=== PATIENT | female | born 1945 | race Caucasian/White ===

== ENCOUNTER 2017-11-28 09:57 | Observation (INO) | payer BC, MEDICARE ==
[2017-11-28] MEDS ORDERED: NS 0.9% 1000 ML* 1,000 ML IV ONE (10:07)
[2017-11-28 10:28] LABS: ABS Basophils 0.1 10^3/ul (0-0.2); ABS Eosinophils 0.1 10^3/ul (0-0.6); ABS Lymphocytes 1.5 10^3/ul (1.0-4.8); ABS Monocytes 0.4 10^3/ul (0-0.8); ABS Neutrophils 3.2 10^3/ul (1.5-7.7); ABS Nucleated RBC 0 10^3/ul; Eosinophil % 1.8 % (0-6); Hematocrit 43 % (35-47); Hemoglobin 14.5 g/dl (12.0-16.0); Mean Corpuscular HGB Conc 34 g/dl (31-36); Mean Corpuscular Hemoglobin 31 pg (27-31); Mean Corpuscular Volume 91 fL (80-97); Mean Platelet Volume 9 um3 (7.4-10.4); Nucleated Red Blood Cells % 0; Platelet Count 156 10^3/ul (150-450); Red Blood Count 4.71 10^6/ul (4.0-5.4); Red Cell Distribution Width 13 % (10.5-15); White Blood Count 5.3 10^3/ul (3.5-10.8)
--- NOTE | 2017-11-28 10:29 | RAD ---
INDICATION: Change in neurologic status COMPARISON: None TECHNIQUE: Noncontrast axial source images were acquired from the skull base to the vertex. FINDINGS: Ventricles/sulci: The ventricles and cisterns are normal in size and configuration for age. Brain parenchyma: There is minor periventricular and subcortical white matter change compatible with chronic ischemia. Intracranial hemorrhage:None. Extra-axial spaces: There are no abnormal extra axial fluid collections or evidence of extra-axial mass. Calvarium: There is no calvarial fracture or other calvarial abnormality. Scalp: There is no evidence of scalp or extracalvarial soft tissue abnormality. Paranasal sinuses/mastoid: The paranasal sinuses and mastoid air cells are clear. Other: None. IMPRESSION: NO ACUTE INTRACRANIAL FINDINGS. Findings called to ED at 1024 hours
[2017-11-28] MEDS ORDERED: Aspirin TAB* 325 MG PO ONE (10:40)
[2017-11-28 10:45] LABS: INR 0.84 (0.77-1.02)
[2017-11-28 10:46] LABS: EGFR Non-African American 47.1 (>60)
--- NOTE | 2017-11-28 11:15 | RAD ---
HISTORY: Neurological changes COMPARISONS: January 06, 2014 VIEWS: 1: frontal portable view of the chest at 10:45 AM FINDINGS: LINES AND TUBES: None. CARDIOMEDIASTINAL SILHOUETTE: The aorta is tortuous. The cardiomediastinal silhouette is otherwise normal for portable technique. PLEURA: The costophrenic angles are sharp. No pleural abnormalities are noted. LUNG PARENCHYMA: The lungs are clear. ABDOMEN: The upper abdomen is clear. There is no subphrenic gas. BONES AND SOFT TISSUES: No bone or soft tissue abnormalities are noted. IMPRESSION: NO ACTIVE CARDIOPULMONARY DISEASE.
[2017-11-28 11:43] LABS: Urine Appearance Clear; Urine Blood Negative (Negative); Urine Color Straw; Urine Ketones Negative (Negative); Urine Protein Negative (Negative); Urine Specific Gravity 1.005 (1.010-1.030); Urine Urobilinogen Negative (Negative)
[2017-11-28] MEDS ORDERED: Acetaminophen TAB* 325 MG PO PRN (12:31)
[2017-11-28] MEDS ORDERED: Ondansetron INJ* 2 MG/ML VIAL IV PRN (12:31)
--- NOTE | 2017-11-28 13:32 | ED ---
Scott Dutton Jennifer, scribed for Delgado Hicks MD on 11/28/17 at 1016 . Neurological HPI - HPI Summary HPI Summary: The patient is a 72 year old female who presents with right-sided facial droop since around 09:00. She reports her face looked normal when she was brushing her teeth at 07:00. Pt explains she has had tight sided tingling to her face around the mouth for the last week. She additionally complains she has had to strain more to enunciate for the past couple of days. Pt denies eyelid drooping , as well as Hx stroke. - History of Current Complaint Chief Complaint: EDNeurologicalDeficit Stated Complaint: FACIAL NUMBNESS Time Seen by Provider: 11/28/17 10:03 Hx Obtained From: Patient Onset/Duration: Gradual Onset, Started hours ago - Facial drooping began this morning., Started weeks ago - RIght-sided face tingling began one week ago, Still Present Timing: Constant Onset Severity: Mild Current Severity: Mild Pain Intensity: 0 Pain Scale Used: 0-10 Numeric Character: Other: - Facial droop, facial tingling, straining to enunciate words. NEGATIVE: eyelid drooping Aggravating: Nothing Alleviating: Nothing Associated Signs and Symptoms: Positive: Negative - Eyelid drooping, Impaired Speech - Straining to enunciate words, Numbness - Tingling to right side of face near mouth - Allergy/Home Medications Allergies/Adverse Reactions: Allergies Allergy/AdvReac Type Severity Reaction Status Date / Time No Known Allergies Allergy Verified 11/28/17 11:41 Home Medications: Home Medications Calcium Carbonate TAB* 1,250 mg PO DAILY 11/28/17 [History Confirmed 11/28/17] FLUoxetine CAP* [PROzac CAP*] 40 mg PO DAILY 11/28/17 [History Confirmed ] Levothyroxine TAB* [Synthroid TAB*] 100 mcg PO DAILY 11/28/17 [History Confirmed 11/28/17] Metoprolol Succinate XL TAB* [Toprol XL TAB*] 25 mg PO DAILY 11/28/17 [History Confirmed 11/28/17] Multivitamins/Minerals TAB* [Theragran/minerals TAB*] 1 tab PO DAILY 11/28/17 [ History Confirmed 11/28/17] [place]-3 Fatty Acids (Nf) [Fish Oil (NF)] 1,000 mg PO DAILY 11/28/17 [History Confirmed 11/28/17] PMH/Surg Hx/FS Hx/Imm Hx Endocrine/Hematology History: Reports: Hx Thyroid Disease Denies: Hx Anticoagulant Therapy, Hx Diabetes Cardiovascular History: Reports: Hx Hypertension, Other Cardiovascular Problems/ Disorders - Hx HTN Denies: Hx Hypercholesterolemia, Hx Syncope Respiratory History: Denies: Hx Seasonal Allergies, Hx Sleep Apnea GI History: Denies: Hx Gall Bladder Disease, Hx Gastroesophageal Reflux Disease, Hx Irritable Bowel, Hx Ulcer History: Denies: Hx Renal Disease Musculoskeletal History: Reports: Hx Arthritis, Other Musculoskeletal History - L and R total knee replacements Denies: Hx Gout Neurological History: Reports: Hx Migraine Denies: Hx CVA, Hx Seizures, Hx Spinal Cord Injury Psychiatric History: Reports: Hx Depression - prozac Denies: Hx Anxiety, Hx Eating Disorder, Hx Panic Disorder, Hx Post Traumatic Stress Disorder, Hx Inpatient Treatment, Hx Suicide Attempt, Hx Substance Abuse - Cancer History Cancer Type, 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 Hx Radiation Therapy: Yes - Surgical History Surgery Procedure, Year, and Place: lumpectomy left, total L knee replacement 06/10/13, total R knree 12/23/13 Hx Anesthesia Reactions: No - Immunization History Date of Tetanus Vaccine: UTD Date of Influenza Vaccine: UTD Infectious Disease History: No Infectious Disease History: Reports: Hx Shingles - past year Denies: Hx Hepatitis, Traveled Outside the [place] in Last 30 Days - Family History Known Family History: Negative: Diabetes - Social History Alcohol Use: None Substance Use Type: Reports: None Review of Systems Negative: Fever Neurological: Other - Right side facial drooping, right side face tingling, difficulty enunciating words All Other Systems Reviewed And Are Negative: Yes Physical Exam - Summary Physical Exam Summary: General: well-appearing, no pain distress Skin: warm, color reflects adequate perfusion, dry Head: normal Eyes: EOMI, FLORENCIA ENT: normal Neck: supple, nontender Respiratory: CTA, breath sounds present Cardiovascular: RRR Abdomen: soft, nontender Bowel: present Musculoskeletal: normal, strength/ROM intact Neurological: right facial droop, decreased sensation to riht side of face, GCS 15, sensory/motor intact, A&O x3 Psychological: affect/mood appropriate Triage Information Reviewed: Yes Vital Signs On Initial Exam: Initial Vitals Temp Pulse Resp BP Pulse Ox 97.2 F 52 16 168/71 100 11/28/17 09:59 11/28/17 09:59 11/28/17 09:59 11/28/17 09:59 11/28/17 09:59 Vital Signs Reviewed: Yes - Patrick Coma Scale Best Eye Response: 4 - Spontaneous Best Motor Response: 6 - Obeys Commands Best Verbal Response: 5 - Oriented Coma Scale Total: 15 Diagnostics - Vital Signs Vital Signs Temp Pulse Resp BP Pulse Ox 11/28/17 09:59 97.2 F 52 16 168/71 100 - Laboratory Lab Results: Lab Results 11/28/17 11/28/17 11/28/17 Range/Units 10:10 10:10 10:10 WBC 5.3 (3.5-10.8) 10^3/ul RBC 4.71 (4.0-5.4) 10^6/ul Hgb 14.5 (12.0-16.0) g/dl Hct 43 (35-47) % MCV 91 (80-97) fL MCH 31 (27-31) pg MCHC 34 (31-36) g/dl RDW 13 (10.5-15) % Plt Count 156 (150-450) 10^3/ul MPV 9 (7.4-10.4) um3 Neut % (Auto) 60.8 (38-83) % Lymph % (Auto) 28.0 (25-47) % Jack % (Auto) 8.0 H (0-7) % Eos % (Auto) 1.8 (0-6) % Baso % (Auto) 1.4 (0-2) % Absolute Neuts (auto) 3.2 (1.5-7.7) 10^3/ul Absolute Lymphs (auto) 1.5 (1.0-4.8) 10^3/ul Absolute Monos (auto) 0.4 (0-0.8) 10^3/ul Absolute Eos (auto) 0.1 (0-0.6) 10^3/ul Absolute Basos (auto) 0.1 (0-0.2) 10^3/ul Absolute Nucleated RBC 0 10^3/ul Nucleated RBC % 0 INR (Anticoag Therapy) 0.84 (0.77-1.02) APTT 31.8 (26.0-36.3) seconds Sodium 137 (133-145) mmol/L Potassium 4.3 (3.5-5.0) mmol/L Chloride 105 (101-111) mmol/L Carbon Dioxide 27 (22-32) mmol/L Anion Gap 5 (2-11) mmol/L BUN 27 H (6-24) mg/dL Creatinine 1.13 H (0.51-0.95) mg/dL Est GFR ( Amer) 60.5 (>60) Est GFR (Non-Af Amer) 47.1 (>60) BUN/Creatinine Ratio 23.9 H (8-20) Glucose 89 (70-100) mg/dL POC Glucose (mg/dL) (70-100) mg/dL Lactic Acid (0.5-2.0) mmol/L Calcium 10.0 (8.6-10.3) mg/dL Total Bilirubin 0.70 (0.2-1.0) mg/dL AST 17 (13-39) U/L ALT 16 (7-52) U/L Alkaline Phosphatase 46 (34-104) U/L Troponin I 0.00 (<0.04) ng/mL Total Protein 7.1 (6.4-8.9) g/dL Albumin 4.3 (3.2-5.2) g/dL Globulin 2.8 (2-4) g/dL Albumin/Globulin Ratio 1.5 (1-3) Triglycerides 97 mg/dL Cholesterol 233 mg/dL LDL Cholesterol 127 mg/dL HDL Cholesterol 86.3 mg/dL TSH 3.66 (0.34-5.60) mcIU/mL Urine Color Urine Appearance Urine pH (5-9) Ur Specific [place] (1.010-1.030) Urine Protein (Negative) Urine Ketones (Negative) Urine Blood (Negative) Urine Nitrate (Negative) Urine Bilirubin (Negative) Urine Urobilinogen (Negative) Ur Leukocyte Esterase (Negative) Urine Glucose (Negative) Blood Type Antibody Screen Antibody Identification Direct Antiglob Test 11/28/17 11/28/17 11/28/17 Range/Units 10:10 10:10 10:12 WBC (3.5-10.8) 10^3/ul RBC (4.0-5.4) 10^6/ul Hgb (12.0-16.0) g/dl Hct (35-47) % MCV (80-97) fL MCH (27-31) pg MCHC (31-36) g/dl RDW (10.5-15) % Plt Count (150-450) 10^3/ul MPV (7.4-10.4) um3 Neut % (Auto) (38-83) % Lymph % (Auto) (25-47) % Jack % (Auto) (0-7) % Eos % (Auto) (0-6) % Baso % (Auto) (0-2) % Absolute Neuts (auto) (1.5-7.7) 10^3/ul Absolute Lymphs (auto) (1.0-4.8) 10^3/ul Absolute Monos (auto) (0-0.8) 10^3/ul Absolute Eos (auto) (0-0.6) 10^3/ul Absolute Basos (auto) (0-0.2) 10^3/ul Absolute Nucleated RBC 10^3/ul Nucleated RBC % INR (Anticoag Therapy) (0.77-1.02) APTT (26.0-36.3) seconds Sodium (133-145) mmol/L Potassium (3.5-5.0) mmol/L Chloride (101-111) mmol/L Carbon Dioxide (22-32) mmol/L Anion Gap (2-11) mmol/L BUN (6-24) mg/dL Creatinine (0.51-0.95) mg/dL Est GFR ( Amer) (>60) Est GFR (Non-Af Amer) (>60) BUN/Creatinine Ratio (8-20) Glucose (70-100) mg/dL POC Glucose (mg/dL) 90 (70-100) mg/dL Lactic Acid 0.4 L (0.5-2.0) mmol/L Calcium (8.6-10.3) mg/dL Total Bilirubin (0.2-1.0) mg/dL AST (13-39) U/L ALT (7-52) U/L Alkaline Phosphatase (34-104) U/L Troponin I (<0.04) ng/mL Total Protein (6.4-8.9) g/dL Albumin (3.2-5.2) g/dL Globulin (2-4) g/dL Albumin/Globulin Ratio (1-3) Triglycerides mg/dL Cholesterol mg/dL LDL Cholesterol mg/dL HDL Cholesterol mg/dL TSH (0.34-5.60) mcIU/mL Urine Color Urine Appearance Urine pH (5-9) Ur Specific [place] (1.010-1.030) Urine Protein (Negative) Urine Ketones (Negative) Urine Blood (Negative) Urine Nitrate (Negative) Urine Bilirubin (Negative) Urine Urobilinogen (Negative) Ur Leukocyte Esterase (Negative) Urine Glucose (Negative) Blood Type O Negative Antibody Screen Positive Antibody Identification Anti-K Direct Antiglob Test Negative 11/28/17 Range/Units 11:23 WBC (3.5-10.8) 10^3/ul RBC (4.0-5.4) 10^6/ul Hgb (12.0-16.0) g/dl Hct (35-47) % MCV (80-97) fL MCH (27-31) pg MCHC (31-36) g/dl RDW (10.5-15) % Plt Count (150-450) 10^3/ul MPV (7.4-10.4) um3 Neut % (Auto) (38-83) % Lymph % (Auto) (25-47) % Jack % (Auto) (0-7) % Eos % (Auto) (0-6) % Baso % (Auto) (0-2) % Absolute Neuts (auto) (1.5-7.7) 10^3/ul Absolute Lymphs (auto) (1.0-4.8) 10^3/ul Absolute Monos (auto) (0-0.8) 10^3/ul Absolute Eos (auto) (0-0.6) 10^3/ul Absolute Basos (auto) (0-0.2) 10^3/ul Absolute Nucleated RBC 10^3/ul Nucleated RBC % INR (Anticoag Therapy) (0.77-1.02) APTT (26.0-36.3) seconds Sodium (133-145) mmol/L Potassium (3.5-5.0) mmol/L Chloride (101-111) mmol/L Carbon Dioxide (22-32) mmol/L Anion Gap (2-11) mmol/L BUN (6-24) mg/dL Creatinine (0.51-0.95) mg/dL Est GFR ( Amer) (>60) Est GFR (Non-Af Amer) (>60) BUN/Creatinine Ratio (8-20) Glucose (70-100) mg/dL POC Glucose (mg/dL) (70-100) mg/dL Lactic Acid (0.5-2.0) mmol/L Calcium (8.6-10.3) mg/dL Total Bilirubin (0.2-1.0) mg/dL AST (13-39) U/L ALT (7-52) U/L Alkaline Phosphatase (34-104) U/L Troponin I (<0.04) ng/mL Total Protein (6.4-8.9) g/dL Albumin (3.2-5.2) g/dL Globulin (2-4) g/dL Albumin/Globulin Ratio (1-3) Triglycerides mg/dL Cholesterol mg/dL LDL Cholesterol mg/dL HDL Cholesterol mg/dL TSH (0.34-5.60) mcIU/mL Urine Color Straw Urine Appearance Clear Urine pH 5.0 (5-9) Ur Specific [place] 1.005 L (1.010-1.030) Urine Protein Negative (Negative) Urine Ketones Negative (Negative) Urine Blood Negative (Negative) Urine Nitrate Negative (Negative) Urine Bilirubin Negative (Negative) Urine Urobilinogen Negative (Negative) Ur Leukocyte Esterase Negative (Negative) Urine Glucose Negative (Negative) Blood Type Antibody Screen Antibody Identification Direct Antiglob Test Result Diagrams: 11/28/17 10:10 11/28/17 10:10 Lab Statement: Any lab studies that have been ordered have been reviewed, and results considered in the medical decision making process. - Radiology CXR Xray Interpretation: No Acute Changes - NO ACTIVE CARDIOPULMONARY DISEASE. Dr. Hicks has reviewed this report. Radiology Interpretation Completed By: Radiologist - CT Brain CT CT Interpretation: No Acute Changes - NO ACUTE INTRACRANIAL FINDINGS. Dr. Hicks has reviewed this report. 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 Non-Paretic Hand: Both Correctly Best Gaze (Only Horizontal Eye Movement): Normal Visual Field Testing: No Visual Loss Facial Paresis-Pt to Smile & Close Eyes or Grimace Symmetry: Minor Paralysis Motor Function - Right Arm: No Drift-Holds 10 Seconds Motor Function - Left Arm: No Drift-Holds 10 Seconds Motor Function - Right Leg: No Drift-Holds 10 Seconds Motor Function - Left Leg: No Drift-Holds 10 Seconds Limb Ataxia-Must be out of Proportion to Weakness Present: Absent Sensory (Use Pinprick to Test Arms/Legs/Trunk/Face): Normal Best Language (Describe Picture, Name Items): No Aphasia Dysarthria (Read Several Words): Normal Extinction and Inattention: No Abnormality Total Score: 1 Course/Dx - Course Course Of Treatment: DR PALACIO, NEUROLOGY, SAW PATIENT IN ED; NO TPA. ADMIT HOSPITALIST. Assessment/Plan: Medications reviewed. BP noted and advised to follow-up with PCP. - Diagnoses Provider Diagnoses: HTN (hypertension), Weakness on right side of face Discharge - Discharge Plan Condition: Stable Disposition: ADMITTED TO [facility] Referrals: Tita Posadas MD [Primary Care Provider] - Additional Instructions: Your blood pressure was elevated during todays visit; please follow up with your primary care provider within a week for further evaluation. The documentation as recorded by the Scott jackson Jennifer accurately reflects the service I personally performed and the decisions made by me, Delgado Hicks MD.
--- NOTE | 2017-11-28 14:34 | RAD ---
HISTORY: Stroke, facial numbness COMPARISONS: Head CT dated November 28, 2017 TECHNIQUE: The following sequences were obtained of the head: Sagittal T1-weighted images, axial T2-weighted images, axial FLAIR images, axial susceptibility weighted images, axial T1-weighted images. Additionally, axial diffusion-weighted images were obtained with calculated apparent diffusion coefficients. FINDINGS: HEMORRHAGE/INFARCT: There is no hemorrhage or acute infarct. MASSES/SHIFT: There is no mass or shift. EXTRA-AXIAL SPACES/MENINGES: There are no extra-axial fluid collections. SULCI AND VENTRICLES: The sulci and ventricles are normal in size and position for the patient's stated age. CEREBRUM: There are multiple scattered small foci of elevated T2/FLAIR signal within the periventricular and subcortical white matter. BRAINSTEM: There are no focal parenchymal abnormalities. CEREBELLUM: There are no focal parenchymal abnormalities. The cerebellar tonsils are normal in size and position. SELLA: The sella is normal. PINEAL: The pineal region is clear. CP ANGLE/TEMPORAL BONES: The labyrinthine structures are grossly normal. VESSELS: Normal flow-voids are noted within the visualized vertebral vasculature. DIFFUSION ABNORMALITIES: There are no diffusion abnormalities. PARANASAL SINUSES/MASTOIDS: The paranasal sinuses are clear. ORBITS: The orbits are unremarkable. BONES AND SOFT TISSUE: No bone or soft tissue abnormalities are noted. OTHER: None IMPRESSION: 1. THERE ARE MULTIPLE FOCI OF ELEVATED T2/FLAIR SIGNAL WITHIN THE PERIVENTRICULAR AND SUBCORTICAL WHITE MATTER. WHILE THESE FINDINGS ARE NONSPECIFIC, THEY CAN BE SEEN IN ASSOCIATION WITH MIGRAINE HEADACHE, THE SEQUELA OF PREVIOUS INFECTION OR INFLAMMATION, AND CHRONIC SMALL VESSEL ISCHEMIA. DEMYELINATING DISEASE IS ALSO WITHIN THE DIFFERENTIAL, BUT IS CONSIDERED LESS LIKELY IN THE ABSENCE OF THE APPROPRIATE CLINICAL PRESENTATION. 2. NO RESTRICTED DIFFUSION TO SUGGEST ACUTE INFARCT.
--- NOTE | 2017-11-28 18:50 | CONS ---
CC: Dr. Posadas * NEUROLOGY CONSULTATION: DATE OF CONSULT: 11/28/17 REASON FOR CONSULT: Dipesh Sales. HISTORY OF PRESENT ILLNESS: Danitza Pretty is a 72-year-old woman with a history of hypothyroidism and depression as well as a previous history of GI bleed while on Coumadin, who came in this morning with right facial weakness. She is not exactly sure when she was last normal, but she thinks at 7 a.m. when she brushed her teeth that she did not notice any facial asymmetry. At some point later, she thinks around 9 a.m. she noticed that the right side of her face seemed weak and so she drove herself into the emergency department. She has cataracts and has some blurry vision related to this, but otherwise denies any vision changes. She indicates that her speech seems slower, but denies any vicki dysarthria or word finding difficulties or trouble understanding speech. She has no extremity weakness or numbness and no problems with her balance. She denies any dysphagia or vertigo. She further stated on my initial evaluation that she may have had some tingling on the right side of her face for about a week and then on a second evaluation, she seemed to indicate that there may have been some twitching on and off on the right side of her face for about a week. Because of the facial droop Dipesh Sales was called and Neurology evaluation was requested. PAST MEDICAL HISTORY: 1. History of Graves' disease, status post iodine therapy, now with hypothyroidism. 2. Depression. 3. Hypertension. 4. GI bleed while on Coumadin after a knee replacement. HOME MEDICATIONS: 1. Fish oil 1000 mg daily. 2. Calcium carbonate 1250 mg daily. 3. Multivitamin 1 tablet daily. 4. Metoprolol 25 mg daily. 5. Levothyroxine 100 mcg daily. 6. Fluoxetine 40 mg daily. ALLERGIES: No known drug allergies. FAMILY HISTORY: She indicates that her mother has had a stroke in the past. 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 She is and her is currently in [place], having some eye surgery. She has 2 children, one of whom is an remarketing manager in [employer]. She is not a smoker and denies alcohol use. REVIEW OF SYSTEMS: As per the HPI, otherwise negative. PHYSICAL EXAMINATION: Vital Signs: Temperature 97.2; blood pressure initially 168/71, on most recent recheck 129/62; heart rate 52; oxygen saturation 97% on room air. On general examination, she is a well-appearing woman in no acute distress. Her heart is in a regular rate and rhythm with no murmurs, rubs, or gallops. She is bradycardic. Lungs were clear to auscultation bilaterally. Her skin is intact. There is no joint swelling or erythema. She is a somewhat imprecise informant and appears anxious. On neurologic examination, she is fully awake, alert and oriented. Her speech is clear without dysarthria or aphasia. Cranial nerve testing, the pupils are equal, round and reactive from 4 to 2 mm bilaterally. Versions are full without nystagmus. Donnelly are full to confrontation with no extinction to double simultaneous stimulation. Facial sensation is intact to light touch and pinprick. She seems to have at rest some slight lower right facial asymmetry. When she speaks at times, this side is activated less, while at other times it seems to activate spontaneously equally. When asked to smile, she does so only with the left side, which did not seem to be a true weakness. Her upper face is equal and her eye closure is full and symmetric. On the later evaluation, she had some occasional twitching movements in the right eye and in the right lower face and some times the left side of the face as well. The palate elevate symmetrically and the tongue is midline. On motor examination, she has normal bulk and tone in the upper and lower extremities. Strength is full proximally and distally with no pronator drift. Sensation is intact to light touch and pinprick in the upper and lower extremities. [id number] and heel- to-chin are intact without ataxia. Reflexes are 2+ throughout with downgoing toes. Her gait is narrow based and stable. DIAGNOSTIC STUDIES/LAB DATA: CBC is unremarkable. CMP is notable for BUN of 27 , creatinine of 1.13 and has slightly elevated BUN to creatinine ratio of 23.9. Nonfasting cholesterol study showed triglycerides 97, total cholesterol 233, LDL 127, and HDL 86.3. Coagulation studies were normal. Noncontrast head CT was obtained and personally reviewed and showed no evidence for an acute intracranial abnormality. IMPRESSION AND PLAN: Danitza Pretty is a 72-year-old woman with a history of hypertension, who presents this morning with some right lower facial weakness, which is possibly occurring in the setting of about a week's worth of tingling and possibly some twitching on the right side of the face as well. She endorses no illness prior to the onset of these symptoms. She scores 1 on the NIH stroke scale. I am not highly suspicious for a stroke at this point given her overall presentation, but did discuss the therapeutic option of tPA with her , which I did not recommend secondary to her low NIH score and her previous history of GI bleeding with Coumadin. At this point, we are going to monitor her further in the emergency department as this could be a developing Esposito's palsy. Alternatively, she may be brought in for a transient ischemic attack workup given her age and history of hypertension. If the twitching in her face continues, I may also consider getting an EEG but this does not seem typical of any focal seizure disorder at this point. She will be given an aspirin here in the emergency department and I discussed the plan to this point with Dr. Hicks. Thank you for this consultation. [id number]/[facility] #: [id number] SIMIN
--- NOTE | 2017-11-28 19:56 | HP ---
CC: Dr. Tita Posadas; Dr. Brown * HISTORY AND PHYSICAL: DATE OF ADMISSION: 11/28/17 PRIMARY CARE PROVIDER: Dr. Tita Posadas. ATTENDING PHYSICIAN WHILE IN THE HOSPITAL: Nelli Brown MD * (report dictated by Brice Funes NP). CHIEF COMPLAINT: Right-sided facial weakness. HISTORY OF PRESENTING ILLNESS: Ms. Pretty is a 72-year-old female patient, she has a history of GI bleed in the past, also has a history of hypothyroidism, history of breast cancer, hypertension, peptic ulcer disease and anxiety. She comes into the ED today stating that she woke up this morning, she was brushing her teeth, she noticed that the right side of her face was not lifting like the left side of her face. She noticed that she was having some numbness and tingling. In further interviewing the patient, she states she has been having, in her words, twitching to the right face, and also has been having some numbness to the right side of the face. She states the sensation over there does not feel the same as on the left side. She denies having any weakness to her upper extremities and lower extremities. Denies having any trouble with her gait. She states her speech to her seems like it is slower, but she states she does not have any slurring of the words. She was concerned and came in to the ED today. She was evaluated. Dipesh Sales was called and we were asked to evaluate for admission. PAST MEDICAL HISTORY: Significant for: 1. History of GI bleed. 2. History of Graves disease, now she has a history of hypothyroidism. 3. She has a history of breast cancer. 4. Hypertension. 5. Anxiety. 6. Peptic ulcer disease. PAST SURGICAL HISTORY: She has had bilateral total knee replacements. She has had an appendectomy. HOME MEDICATIONS: According to the list that was provided include: 1. Fish oil 1000 mg p.o. daily. 2. Calcium carbonate 1200 mg p.o. daily. 3. Multivitamin 1 tablet daily. 4. Toprol XL 25 mg daily. 5. Synthroid 100 mcg daily. 6. Prozac 40 mg daily. ALLERGIES TO MEDICATIONS: Include no known drug allergies. She is allergic to BEES. FAMILY HISTORY: Mother had a history of CVA. Father had prostate cancer. SOCIAL HISTORY: She does not smoke. She does not drink. Surrogate decision maker is her . REVIEW OF SYSTEMS: There is no documented fever. Denies having any significant weight change. There was no double vision. There is no ear discharge. She denies having any rhinorrhea. There is no sore throat. No thyroid enlargement. Denies having any chest pain. There is no orthopnea. There is no nocturnal dyspnea. She denies having any abdominal pain. There has been no nausea, no vomiting. There has been no dysuria. No frequency. There was no seizure. No loss of consciousness. No pruritus and no skin ulcerations. Review of 14 systems completed, all others negative. PHYSICAL EXAMINATION GENERAL: At this time, Ms. Pretty is a 72-year-old female patient. She is sitting in the ED stretcher. She appears to be well nourished, well developed. VITAL SIGNS: Blood pressure 146/61, pulse 44, respirations 14, O2 sat 98% , temperature 97.2. HEENT: Head atraumatic. Eyes: EOM's intact. Sclerae anicteric, not pale. Throat: Oral mucosa appears to be moist. No oropharyngeal erythema. NECK: Supple. LUNGS: Clear to auscultation. No wheezes, rales or rhonchi. HEART: Sounds S1, S2. Regular rate and rhythm. She is bradycardic. ABDOMEN: Soft, flat, nontender. Bowel sounds were present. EXTREMITIES: Pulses were 2+ throughout. She is moving all 4 extremities with 5 /5 strength. NEUROLOGIC: The patient is awake, she is alert. She has a slight facial droop on the right side. Sensation to that right side compared to the left is decreased according to the patient. Iyaoqi-rz-qawd intact bilaterally. Heel-to -haley intact bilaterally. She has 5/5 strength. Sensation was intact to lower extremities. Her speech to me appeared to be clear. Cranial nerves and EOM's are intact. Pupils were equal and reactive to light. No other gross focal deficits were noted. SKIN: Intact. LABORATORY DATA/DIAGNOSTIC STUDIES: WBC 5.3, RBC 4.71, hemoglobin 14.5, hematocrit 43, platelet count 156,000. INR 0.84, PTT 31.8. Sodium 137, potassium 4.3, chloride 105, bicarb 27. BUN 27; creatinine 1.13, it is right at her baseline. Her glucose was 89, lactic 0.4, calcium 10, total bilirubin 0.7, AST 17, ALT 16, alk phos 46, troponin 0, albumin 4.3. LDH was 127. Urine was obtained, it was negative. She had a brain CT obtained today which revealed no acute intracranial findings. There was a chest x-ray obtained today which revealed no active cardiopulmonary disease. There was an EKG obtained today which showed sinus bradycardia with no ST elevations or T-wave inversions, appeared to be a sinus bradycardia at rate of 50. Last EKG from 4 years ago, she had a sinus rhythm at rate of 68. Old medical records reviewed. ASSESSMENT AND PLAN: Ms. Pretty is a 72-year-old female patient coming in to the ED today with complaints of right facial droop, Code Sales was called. We were asked to evaluate for admission. She will be admitted under observation status for: 1. Question of right facial droop, possible cerebrovascular accident versus Esposito's palsy. It is hard to know at this point. Dr. Brown was evaluating. My plan is to go ahead and get an MRI, give her aspirin, check lipids and A1c for the time being. If the MRI is positive, I would proceed to do an echo and CTA of the head and neck, but Dr. Brown will be following closely. We will get frequent neuro checks. Place the patient on telemetry. We will continue to follow. 2. Bradycardia. I am going to check her TSH. She is also on Toprol XL. We may have to decrease this dose. Her heart rate resting here is between 40 to 50. She is asymptomatic. Blood pressure is stable. We will trend these. We will place her on telemetry, hold her beta-naty for the time being and we will continue to monitor her. The EKG does not show any signs of ischemia. She is not having any chest pain or any shortness of breath. Again, she is asymptomatic. We will monitor this for time being. 3. History of GI bleed, not an active issue currently. 4. History of breast cancer. Follow with primary. 5. Hypertension. Blood pressure, she is in the 140s with a concern of possible cerebrovascular accident. We will allow for permissive hypertension. 6. Anxiety. Continue supportive care. 7. Peptic ulcer disease. Follow with primary. 8. Hypothyroidism. Continue Synthroid. Checking TSH. 9. DVT prophylaxis. She will be placed on SCD's for time being because of the history of GI bleed. In addition to this, if there is active cerebrovascular accident I do not want to give her anticoagulants just yet. 10. Fluid, electrolytes and nutrition. She can have a heart healthy diet. TIME SPENT: Time spent on admission was 60 minutes, greater than half the time was spent [id number] with the patient obtaining my history and physical, other half of the time spent going over the plan of care with the patient and implementing plan of care. I did discuss plan of care with my attending, Dr. Brown, she is in agreement. BRICE FUNES, LADLE LINER [id number]/[facility] #: [id number] MTDD
[2017-11-29] MEDS ORDERED: Levothyroxine TAB* 100 MCG TAB PO SCH (06:00)
[2017-11-29 06:14] LABS: ABS Basophils 0.1 10^3/ul (0-0.2); ABS Eosinophils 0.1 10^3/ul (0-0.6); ABS Lymphocytes 1.4 10^3/ul (1.0-4.8); ABS Monocytes 0.4 10^3/ul (0-0.8); ABS Neutrophils 2.5 10^3/ul (1.5-7.7); ABS Nucleated RBC 0 10^3/ul; Eosinophil % 2.1 % (0-6); Hematocrit 40 % (35-47); Hemoglobin 13.7 g/dl (12.0-16.0); Lymphocyte % 31.4 % (25-47); Mean Corpuscular HGB Conc 34 g/dl (31-36); Mean Corpuscular Hemoglobin 31 pg (27-31); Mean Corpuscular Volume 90 fL (80-97); Mean Platelet Volume 9 um3 (7.4-10.4); Nucleated Red Blood Cells % 0; Platelet Count 141 10^3/ul (150-450); Red Blood Count 4.47 10^6/ul (4.0-5.4); Red Cell Distribution Width 13 % (10.5-15); White Blood Count 4.4 10^3/ul (3.5-10.8)
[2017-11-29 06:28] LABS: EGFR Non-African American 51.8 (>60)
[2017-11-29] MEDS ORDERED: FLUoxetine CAP* 20 MG PO SCH (09:00)
[2017-11-29] MEDS ORDERED: Aspirin Low Dose CHEW TAB* 81 MG PO SCH (09:00)
--- NOTE | 2017-11-29 09:16 | PN ---
Subjective Date of Service: 11/29/17 Interval History: Patient seen and examined. C/O right facial and eye twitch, uncontrolled. No headache or dizziness, no fever or chills, denies SOB or chest pain. No further complaints and no acute overnight events. Objective Active Medications: Acetaminophen (Tylenol Tab*) 650 mg PO Q4H PRN PRN Reason: FEVER/PAIN Aspirin (Aspirin Low Dose Tab*) 81 mg PO DAILY [facility] Last Admin: 11/29/17 08:47 Dose: 81 mg Fluoxetine HCl (Prozac Cap*) 40 mg PO DAILY [facility] Last Admin: 11/29/17 08:47 Dose: 40 mg Levothyroxine Sodium (Synthroid Tab*) 100 mcg PO DAILY@0600 [facility] Last Admin: 11/29/17 05:13 Dose: 100 mcg Ondansetron HCl (Zofran Inj*) 4 mg IV Q6H PRN PRN Reason: NAUSEA Vital Signs - 8 hr 11/29/17 11/29/17 11/29/17 04:16 07:56 08:00 Temperature 97.8 F Pulse Rate 48 47 Respiratory 16 14 Rate Blood Pressure 143/70 151/69 (mmHg) O2 Sat by Pulse 97 98 98 Oximetry 11/29/17 08:11 Temperature 98.2 F Pulse Rate Respiratory Rate Blood Pressure (mmHg) O2 Sat by Pulse Oximetry Oxygen Devices in Use Now: None Appearance: Alert, NAD Eyes: No Scleral Icterus - pronounced twitch right eye and cheek, PERRLA Ears/Nose/Mouth/Throat: NL Teeth, Lips, Gums, Clear Oropharnyx, Mucous Membranes Moist Neck: Trachea Midline Respiratory: Symmetrical Chest Expansion and Respiratory Effort, Clear to Auscultation Cardiovascular: NL Sounds; No Murmurs; No JVD Extremities: No Edema, No Clubbing, Cyanosis Neurological: Alert and Oriented x 3, NL Sensation, NL Gait - cranial nerves intact, NL Muscle Strength and Tone Nutrition: Taking PO's Result Diagrams: 11/29/17 06:06 11/29/17 06:06 Additional Lab and Data: Diagnostic Imaging: Patient Name: KARISSA JOSEPH Medical Record#: [id number] Ordering Physician: 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 Additionally, axial diffusion-weighted images were obtained with calculated apparent diffusion coefficients. FINDINGS: HEMORRHAGE/INFARCT: There is no hemorrhage or acute infarct. MASSES/SHIFT: There is no mass or shift. EXTRA-AXIAL SPACES/MENINGES: There are no extra-axial fluid collections. SULCI AND VENTRICLES: The sulci and ventricles are normal in size and position for the patient's stated age. CEREBRUM: There are multiple scattered small foci of elevated T2/FLAIR signal within the periventricular and subcortical white matter. BRAINSTEM: There are no focal parenchymal abnormalities. CEREBELLUM: There are no focal parenchymal abnormalities. The cerebellar tonsils are normal in size and position. SELLA: The sella is normal. PINEAL: The pineal region is clear. CP ANGLE/TEMPORAL BONES: The labyrinthine structures are grossly normal. VESSELS: Normal flow-voids are noted within the visualized vertebral vasculature. DIFFUSION ABNORMALITIES: There are no diffusion abnormalities. PARANASAL SINUSES/MASTOIDS: The paranasal sinuses are clear. ORBITS: The orbits are unremarkable. BONES AND SOFT TISSUE: No bone or soft tissue abnormalities are noted. OTHER: None IMPRESSION: 1. THERE ARE MULTIPLE FOCI OF ELEVATED T2/FLAIR SIGNAL WITHIN THE PERIVENTRICULAR AND SUBCORTICAL WHITE MATTER. WHILE THESE FINDINGS ARE NONSPECIFIC, THEY CAN BE SEEN IN ASSOCIATION WITH MIGRAINE HEADACHE, THE SEQUELA OF PREVIOUS INFECTION OR INFLAMMATION, AND CHRONIC SMALL VESSEL ISCHEMIA. DEMYELINATING DISEASE IS ALSO WITHIN THE DIFFERENTIAL, BUT IS CONSIDERED LESS LIKELY IN THE ABSENCE OF THE APPROPRIATE CLINICAL PRESENTATION. 2. NO RESTRICTED DIFFUSION TO SUGGEST ACUTE INFARCT. <Electronically signed by Feliberto Portillo MD in OV> 11/28/17 1430 Dictated By: Feliberto Portillo MD Dictated Date/Time: 11/28/171429 Transcribed Date/Time: 11/28/17 142 Copy to: Assess/Plan/Problems-Billing Assessment: This is a 72 year old female with hx of HTN and migraines in the past that presented to the ER with right side facial droop, admitted for r/o CVA. - Patient Problems (1) Facial droop Code(s): R29.810 - FACIAL WEAKNESS SNOMED Code(s): 32664190 Comment: - MRI as above, does not appear to be acute infarct - Appreciate recs from Dr. Brown regarding Esposito's Palsy versus other etiology (2) Anxiety Code(s): F41.9 - ANXIETY DISORDER, UNSPECIFIED SNOMED Code(s): 20917697 Comment: - Continue fluoxetine (3) Graves disease Code(s): E05.00 - THYROTOXICOSIS W DIFFUSE GOITER W/O THYROTOXIC CRISIS SNOMED Code(s): 046741089 Comment: - Continue synthroid (4) Hypertension Code(s): I10 - ESSENTIAL (PRIMARY) HYPERTENSION SNOMED Code(s): 96437258 Comment: - Metoprolol held for bradycardia, continue low dose ASA (5) Hyperlipidemia Code(s): E78.5 - HYPERLIPIDEMIA, UNSPECIFIED SNOMED Code(s): 36778076 Comment: - Takes fish oil at home Status and Disposition: Remain inpatient obs until clear by neuro. Dispo planning to home.
[2017-11-29 13:46] VITALS: BP 120/78
[2017-11-29] MEDS ORDERED: Gabapentin CAP(*) 100 MG PO SCH (16:00)
--- NOTE | 2017-11-30 11:32 | PN ---
NEUROLOGY PROGRESS NOTE: DATE OF FOLLOWUP: 11/29/17 HISTORY: No acute overnight events. The patient today has more persistent facial twitching rather than the facial weakness that had been noted previously. She otherwise feels at her baseline and is hoping to go home. Additional history includes that she had travelled to [place] earlier this month , returning on the to visit her grandchildren. They had some upper respiratory infections, but she is not aware of having come down with anything. She did not have any exposures that she knows of. HOSPITAL MEDICATIONS: Includes: 1. Tylenol 650 q.4 p.r.n. 2. Aspirin 81 mg daily. 3. Fluoxetine 40 mg daily. 4. Levothyroxine 100 mcg daily. PHYSICAL EXAMINATION: Vital Signs: Temperature 98.2, blood pressure 120/78, heart rate 62, oxygen saturation is 98% on room air. On general examination, she is in no acute distress. When she is not speaking, her face is mostly symmetric and quiet with occasional twitching mostly around the eye and in the forehead. When she begins to speak, her orbicularis oculi has begun to twitch and she has some twitching at the lower corner of the mouth as well as some times the forehead. Twitching also seems to be exacerbated when she activates the muscles when asked to smile and close her eyes. Otherwise, her speech is full without dysarthria or aphasia. Versions are full. She has full strength proximally and distally. There are no sensory disturbances. DIAGNOSTIC STUDIES/LAB DATA: Her BMP is stable today. CBC shows platelets of 141 from 156 yesterday. MRI of the brain was personally reviewed and shows some mild stigmata of chronic small vessel ischemic disease, but no evidence for infarction. IMPRESSION: Danitza Pretty is a 72-year-old woman with hypertension, who came in to the hospital yesterday, initially reporting some right facial weakness, but also associated twitching and today has had more persistent facial twitching. It appears that this may be consistent with hemifacial spasm. We discussed getting further imaging, which will be done as an outpatient including MRA of the brain to evaluate for any blood vessel anomaly, which may be causing compression of the facial nerve on the right side. Symptomatically, we can start her on gabapentin 100 mg 3 times daily and she was warned about possible sedation with this. She otherwise can continue her other outpatient medications and I would like to see her back in my office in about 4 weeks to check on her progress. This was discussed with Glendy Ramos, who will take care of discharging her today. [id number]/[facility] #: [id number] SIMIN
== END 2017-11-29 16:49 | disposition home or self-care (01) ==
LOC: ED 09:57 → MEDTELE 13:57
PROVIDERS: ADMIT Internal Medicine; ATTEND Psychiatry & Neurology Neurology
DX: R29.810 Facial weakness (principal); F41.9 Anxiety disorder, unspecified; E05.00 Thyrotoxicosis with diffuse goiter without thyrotoxic crisis or storm; E78.5 Hyperlipidemia, unspecified; I10 Essential (primary) hypertension; K92.2 Gastrointestinal hemorrhage, unspecified; R53.1 Weakness; Z96.651 Presence of right artificial knee joint; Z79.82 Long term (current) use of aspirin; F32.9 Major depressive disorder, single episode, unspecified; Z79.01 Long term (current) use of anticoagulants
CPT/HCPCS: 36415; 70450; 70551; 71045; 80048; 80053; 80061; 81003; 83036; 83605; 84443; 84484; 85025; 85610; 85730; 86850; 86870; 86880; 86900; 86901; 93005; 99285; A9270-GY; G0378

== ENCOUNTER 2018-01-02 10:31 | Day surgery (SDC) | payer MEDICARE ==
[2018-01-02] MEDS ORDERED: fentaNYL* 50 MCG/ML 2 ML VIAL (100 MCG VIAL) ONE (12:41)
[2018-01-02] MEDS ORDERED: Midazolam* 1 MG/ML 2 ML VIAL (2 MG) ONE (12:41)
[2018-01-02] MEDS ORDERED: Lidocaine 1% MPF* 2 ML VIAL ONE (12:46)
[2018-01-02] MEDS ORDERED: Cyclopentolate 1% OPTH.SOL* 2 ML BTL ONE (12:46)
[2018-01-02] MEDS ORDERED: Phenylephrine 2.5% OPTH.SOL* 2 ML BTL ONE (12:46)
[2018-01-02] MEDS ORDERED: Tetracaine 0.5% OPTH.SOL 4 ML* 1 DROP BTL ONE (12:46)
[2018-01-02] MEDS ORDERED: Ketorolac 0.5% OPHTH (NF) 0.5 % 5 ML BTL ONE (12:46)
[2018-01-02] MEDS ORDERED: Tropicamide 1% OPTH.SOL* BTL ONE (12:46)
[2018-01-02] MEDS ORDERED: Neomycin/Polymy/Dex OPHTH.OIN* 3.5 GM ONE (12:46)
[2018-01-02 13:45] VITALS: BP 138/80
--- NOTE | 2018-01-03 12:18 | OP ---
OPERATIVE REPORT: DATE OF OPERATION: 01/02/18 DATE OF : 41 SURGEON: Dr. Fernando Walters. DIRECTOR STRATEGY: None. ANESTHESIA: Topical with intravenous sedation. PRE-OP DIAGNOSIS: Cataract, left eye. POST-OP DIAGNOSIS: Cataract, left eye. OPERATIVE PROCEDURE: Phacoemulsification and cataract extraction with posterior chamber intraocular lens implant, left eye. COMPLICATIONS: None. BLOOD LOSS: None. DESCRIPTION OF PROCEDURE: The patient was brought to the operating room and received a small amount of intravenous sedation. A drop of Tetracaine was placed in her left eye. She was prepped and drape d in the usual sterile fashion for ophthalmic surgery and attention was directed to the left eye wher e a speculum was placed. A paracentesis was created at the 5 o'clock position and 0.1 cc of 1 percen t preservative-free Lidocaine was injected into the anterior chamber followed by DisCoVisc. The eye was digitally stabilized while a 2.75 mm keratome was used to create a triplanar clear corneal incisi on at the 3 o'clock position. A continuous curvilinear capsulorrhexis was created with a cystotome a nd Utrata forceps. BSS on a cannula was used to hydrodissect the lens from the capsule. Phacoemulsif ication was performed in a jlmhdo-vnq-aydwllk technique to create four fragments which were removed. Residual cortical material was removed with irrigation and aspiration. DisCoVisc was used to inflat e the capsular bag and an SV25T0 20.0 diopter lens was folded and inserted into the capsular bag. Di sCoVisc was removed using irrigation and aspiration. BSS on a cannula was used to hydrate the cornea l stroma and seal the wound. At the end of the case the pupil was round and the lens was centered. The eye was of normal pressure and the wound was water tight. The speculum was removed and topical M axitrol ointment was placed on the surface of the eye. The eye was closed, patched and shielded and the patient was sent to the recovery room in stable condition with post operative instructions and fo llow-up appointment given. [id number]/[facility] #: [id number]
== END 2018-01-02 13:52 | disposition home or self-care (01) ==
LOC: OREAST 10:31
PROVIDERS: ATTEND Ophthalmology
DX: H25.12 Age-related nuclear cataract, left eye (principal); I10 Essential (primary) hypertension; E05.00 Thyrotoxicosis with diffuse goiter without thyrotoxic crisis or storm; M19.90 Unspecified osteoarthritis, unspecified site; Z85.3 Personal history of malignant neoplasm of breast
CPT/HCPCS: A9270-GY; J2250; J3010; V2788

== ENCOUNTER 2018-01-09 11:24 | Day surgery (SDC) | payer MEDICARE ==
[~2018-01-09 11:24] MED LIST: Acetaminophen TAB* 325 MG PO PRN; Buffered Lidocaine 0.9% SYRIN* 5 ML/SYR SYRINGE INTRADERM ONE
[2018-01-09] MEDS ORDERED: fentaNYL* 50 MCG/ML 2 ML VIAL (100 MCG VIAL) ONE (13:45)
[2018-01-09] MEDS ORDERED: Midazolam* 1 MG/ML 5 ML VIAL (5 MG) ONE (13:45)
[2018-01-09] MEDS ORDERED: Lidocaine 1% MPF* 2 ML VIAL ONE (13:58)
[2018-01-09] MEDS ORDERED: Phenylephrine 2.5% OPTH.SOL* 2 ML BTL ONE (13:58)
[2018-01-09] MEDS ORDERED: Cyclopentolate 1% OPTH.SOL* 2 ML BTL ONE (13:58)
[2018-01-09] MEDS ORDERED: Tropicamide 1% OPTH.SOL* BTL ONE (13:58)
[2018-01-09] MEDS ORDERED: Neomycin/Polymy/Dex OPHTH.OIN* 3.5 GM ONE (13:58)
[2018-01-09] MEDS ORDERED: Ketorolac 0.5% OPHTH (NF) 0.5 % 5 ML BTL ONE (13:59)
[2018-01-09] MEDS ORDERED: Tetracaine 0.5% OPTH.SOL 4 ML* 1 DROP BTL ONE (13:59)
[2018-01-09 14:50] VITALS: BP 149/76
--- NOTE | 2018-01-10 02:48 | OP ---
DATE OF OPERATION: 01/09/18 [facility] DATE OF : 41 SURGEON: Fernando Walters MD DIRECTOR OF STRATEGIC INITIATIVES: None. ANESTHESIA: Topical with intravenous sedation. PRE-OP DIAGNOSIS: Cataract, right eye. POST-OP DIAGNOSIS: Cataract, right eye. OPERATIVE PROCEDURE: Phacoemulsification and cataract extraction with posterior chamber intraocular lens implant, right eye. COMPLICATIONS: None. BLOOD LOSS: None. DESCRIPTION OF PROCEDURE: The patient was brought to the operating room and received a small amount of intra-venous sedation. A drop of Tetracaine was placed in her right eye. She was prepped and draped in the usual sterile fashion for ophthalmic surgery and attention was directed to the right eye where a speculum was placed. A paracentesis was created at the 11 o'clock position and 0.1 cc of 1 percent preservative-free Lidocaine was injected into the anterior chamber followed by DisCoVisc. The eye was digitally stabilized while a 2.75 mm keratome was used to create a triplanar clear corneal incision at the 9 o'clock position. A continuous curvilinear capsulorrhexis was created with a cystotome and Utrata forceps. BSS on a cannula was used to hydrodissect the lens from the capsule. Phacoemulsification was performed in a divide-and- conquer technique to create four fragments which were removed. Residual cortical material was removed with irrigation and aspiration. DisCoVisc was used to inflate the capsular bag and an SV25T0 20.5 diopter lens was folded and inserted into the capsular bag. DisCoVisc was removed using irrigation and aspiration. BSS on a cannula was used to hydrate the corneal stroma and seal the wound. At the end of the case the pupil was round and the lens was centered. The eye was of normal pressure and the wound was water tight. The speculum was removed and topical Maxitrol ointment was placed on the surface of the eye. The eye was closed, patched and shielded and the patient was sent to the recovery room in stable condition with post operative instructions and follow-up appointment given. [id number]/[facility] #: [id number] SIMIN
== END 2018-01-09 15:00 | disposition home or self-care (01) ==
LOC: OREAST 11:24
PROVIDERS: ATTEND Ophthalmology
DX: H25.11 Age-related nuclear cataract, right eye (principal); I10 Essential (primary) hypertension; E05.00 Thyrotoxicosis with diffuse goiter without thyrotoxic crisis or storm; Z85.3 Personal history of malignant neoplasm of breast
CPT/HCPCS: A9270-GY; J2250; J3010; V2788

== ENCOUNTER 2019-01-20 22:18 | Emergency (ER) | payer MEDICARE ==
[2019-01-21 01:02] VITALS: BP 179/86
--- NOTE | 2019-01-21 01:07 | ED ---
Lower Extremity - HPI Summary HPI Summary: Patient is a 73-year-old female who presents emergency department for left lower leg injury that occurred yesterday. Patient states she was in the garden and was leaning on a shovel when the shovel fell and patient fell landing onto her left side. Patient denies head injury or loss of consciousness. Patient states she injured her left lower leg. Patient states she noticed small area of bruising to her leg and swelling. Patient notes she is able to ambulate with some discomfort. Patient concern for potential DVT and presents for evaluation. Patient denies chest pain or shortness of breath. Patient denies back pain, numbness, tingling or weakness. Symptoms are mild in severity. Walking makes symptoms worse. Rest makes symptoms better. - History of Current Complaint Chief Complaint: EDExtremityLower Stated Complaint: "LT CALF SWELLING" Time Seen by Provider: 01/21/19 00:22 Hx Obtained From: Patient Pain Intensity: 2 - Allergies/Home Medications Allergies/Adverse Reactions: Allergies Allergy/AdvReac Type Severity Reaction Status Date / Time bee venom protein (honey bee) Allergy Anaphylatic Verified 01/20/19 22:23 Shock Home Medications: Home Medications Carbamazepine [Carbamazepine ER] 1 tab PO BID 01/21/19 [History Confirmed ] PMH/Surg Hx/FS Hx/Imm Hx Previously Healthy: Yes Endocrine/Hematology History: Reports: Hx Thyroid Disease Denies: Hx Anticoagulant Therapy, Hx Diabetes Cardiovascular History: Reports: Hx Hypertension, Other Cardiovascular Problems/ Disorders - Hx HTN Denies: Hx Hypercholesterolemia, Hx Pacemaker/ICD, Hx Syncope Respiratory History: Denies: Hx Seasonal Allergies, Hx Sleep Apnea GI History: Denies: Hx Gall Bladder Disease, Hx Gastroesophageal Reflux Disease, Hx Irritable Bowel, Hx Ulcer History: Denies: Hx Renal Disease Musculoskeletal History: Reports: Hx Arthritis, Other Musculoskeletal History - L and R total knee replacements Denies: Hx Gout Sensory History: Reports: Hx Cataracts - both, Hx Contacts or Glasses Denies: Hx Hearing Aid Opthamlomology History: Reports: Hx Cataracts - both, Hx Contacts or Glasses Neurological History: Reports: Hx Migraine, Other Neuro Impairments/Disorders - 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 total L knee replacement 06/10/13,. total R knee 12/23/13,. d&c,. tonsils,. appendix, Hx Anesthesia Reactions: No - Immunization History Date of Tetanus Vaccine: UTD Date of Influenza Vaccine: UTD Infectious Disease History: Yes Infectious Disease History: Reports: Hx Shingles - past year Denies: Hx Hepatitis, Traveled Outside the [place] in Last 30 Days - Family History Known Family History: Negative: Diabetes - Social History Occupation: Retired Lives: With Family Alcohol Use: Rare Substance Use Type: Reports: None Smoking Status (MU): Never Smoked Tobacco Review of Systems Cardiovascular: Negative Negative: Chest Pain Respiratory: Negative Negative: Shortness Of Breath Positive: Other - Left lower leg pain and swelling. No back pain Positive: Bruising Negative: Weakness, Paresthesia, Numbness All Other Systems Reviewed And Are Negative: Yes Physical Exam Triage Information Reviewed: Yes Vital Signs On Initial Exam: Initial Vitals Temp Pulse Resp BP Pulse Ox 97.5 F 63 16 208/94 96 01/20/19 22:20 01/20/19 22:20 01/20/19 22:20 01/20/19 22:20 01/20/19 22:20 Vital Signs Reviewed: Yes Appearance: Positive: Well-Appearing - Pt. lying in bed in NAD. present. Skin: Positive: Warm, Dry Head/Face: Positive: Normal Head/Face Inspection Eyes: Positive: Normal, EOMI Neck: Positive: Supple Musculoskeletal: Positive: Other - Good left pedal pulse. Noted to the lateral aspect of left leg there is a small area fo ecchymosis and pain. No breaks in skin. No bony tenderness to tib/fib. No knee or hip pain. Neurological: Positive: Normal, CN Intact II-III Psychiatric: Positive: Affect/Mood Appropriate Diagnostics - Vital Signs Vital Signs Temp Pulse Resp BP Pulse Ox 01/21/19 00:59 52 179/86 99 01/21/19 00:15 58 175/84 97 01/20/19 22:20 97.5 F 63 16 208/94 96 - Laboratory Lab Statement: Any lab studies that have been ordered have been reviewed, and results considered in the medical decision making process. Lower Extremity Course/Dx - Course Course Of Treatment: Patient presenting with left lower leg injury. Ultrasound obtained in triage and is negative for DVT per radiology. Discussed obtaining x -ray with patient to rule out fracture which she declines. Suspect soft tissue contusion. Advised to elevate and ice intermittently. Tylenol for pain as directed. Advised follow-up with PCP for repeat ultrasound once 2 weeks if swelling persists. Patient's blood pressure has been high in the ER at 176/86. Patient denies headache, chest pain, shortness of breath. Advised her to follow-up with her family doctor for further evaluation. Patient return to the ER if symptoms change or worsen. Patient understands and agrees with plan. - Diagnoses Differential Diagnosis/HQI/PQRI: Positive: DVT, Fracture (Closed), Sprain, Strain Provider Diagnoses: Contusion, lower leg Discharge - Sign-Out/Discharge Documenting (check all that apply): Patient Departure Patient Received Moderate/Deep Sedation with Procedure: No - Discharge Plan Condition: Good Disposition: HOME Patient Education Materials: Contusion in Adults (ED) Referrals: Ana Mario MD [Primary Care Provider] - Additional Instructions: Schedule a follow up appointment with your PCP for blood pressure recheck You may need a repeat venous ultrasound in 1-2 weeks if swelling persist Ice and elevate intermittently Tylenol for pain as directed Return to ER if symptoms change or worsen - Billing Disposition and Condition Condition: GOOD Disposition: Home
== END 2019-01-21 01:10 | disposition home or self-care (01) ==
LOC: ED 22:18
DX: S80.12XA Contusion of left lower leg, initial encounter (principal); W22.8XXA Striking against or struck by other objects, initial encounter; Y93.H2 Activity, gardening and landscaping; Y92.017 Garden or yard in single-family (private) house as the place of occurrence of the external cause; Y99.8 Other external cause status; E07.9 Disorder of thyroid, unspecified; I10 Essential (primary) hypertension
CPT/HCPCS: 99283